=== PATIENT | female | born 1970 | race Caucasian/White ===

== ENCOUNTER 2018-02-23 13:01 | Emergency (ER) | payer OTHER, SELFPAY ==
[2018-02-23 13:01] VITALS: BMI 34.3
[2018-02-23 13:15] VITALS: BP 146/70; PULSE 97; RESP 18; TEMP 98; O2SAT 96
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
--- NOTE | 2018-02-23 14:57 | CT ---
Date of service: 02/23/2018 PROCEDURE: CT HEAD WITHOUT CONTRAST. HISTORY: trauma COMPARISON: None available. TECHNIQUE: Axial computed tomography images were obtained through the head/brain without intravenous contrast. Radiation dose: Total exam DLP = 913.34 mGy-cm. This CT exam was performed using one or more of the following dose reduction techniques: Automated exposure control, adjustment of the mA and/or kV according to patient size, and/or use of iterative reconstruction technique. FINDINGS: HEMORRHAGE: No intracranial hemorrhage. BRAIN: No mass effect or edema. No atrophy or chronic microvascular ischemic changes. VENTRICLES: Unremarkable. No hydrocephalus. CALVARIUM: Unremarkable. PARANASAL SINUSES: Right maxillary sinus opacification. MASTOID AIR CELLS: Unremarkable as visualized. No inflammatory changes. OTHER FINDINGS: None. IMPRESSION: No acute hemorrhage.
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
== END 2018-02-23 15:28 | disposition home or self-care (01) ==
LOC: H.ER 13:01
DX: S06.0X1A Concussion with loss of consciousness of 30 minutes or less, initial encounter (principal); S69.91XA Unspecified injury of right wrist, hand and finger(s), initial encounter; S79.911A Unspecified injury of right hip, initial encounter; W19.XXXA Unspecified fall, initial encounter; Y92.410 Unspecified street and highway as the place of occurrence of the external cause